=== PATIENT | female | born 1990 | race Two or more races ===

== ENCOUNTER 2018-07-31 17:47 | Inpatient (IN) | payer MEDICAID, OTHER ==
[~2018-07-31] VITALS: Ht 160 cm; Wt 102.1 kg
[2018-07-31] MEDS ORDERED: IV NS 0.9% 1,000 ML BAG IV ONE (18:00)
--- NOTE | 2018-07-31 18:03 | NUR ---
BIBRA39 FROM HOME FOR ETOH POSSIBLE DRUG USE AND WITNESSED SEIZURE. VERSED 5MCG IM GIVEN BENCH ASSEMBLER OPERATOR, BG 85 BENCH ASSEMBLER OPERATOR. PT IS UNRESPONSIVE ON ASSESSMENT. SKIN IS INTACT AND VSS. NO SIGNS OF TRAUMA. READY FOR EVAL.
[2018-07-31 18:11] LABS: BASOPHILS # (AUTO) 0.1 /CMM (0.0-0.2); BASOPHILS % (AUTO) 1.4 % (0.0-2.0); EOSINOPHILS % (AUTO) 2.8 % (0.0-6.0); HEMATOCRIT 37 % (33-45); HEMOGLOBIN 12.2 g/dL (11.5-14.8); LYMPHOCYTES # (AUTO) 2.3 /CMM (0.8-4.8); LYMPHOCYTES % (AUTO) 30.3 % (20.0-44.0); MEAN CORPUSCULAR HGB CONC 33 g/dl (31.0-36.0); MEAN CORPUSCULAR VOLUME 80 fL (82-100); MONOCYTES # (AUTO) 0.4 /CMM (0.1-1.30); MONOCYTES % (AUTO) 5.4 % (2.0-12.0); NEUTROPHILS # (AUTO) 4.6 /CMM (1.8-8.9); NEUTROPHILS % (AUTO) 60.1 % (43.0-81.0); PLATELET COUNT (AUTO) 185 /CMM (150-450); RED BLOOD CELL COUNT(AUTO) 4.64 MIL/uL (4.0-5.2); WHITE BLOOD COUNT (AUTO) 7.7 K/uL (4.3-11.0)
--- NOTE | 2018-07-31 18:20 | NUR ---
ASSISTED PT TO RESTROOM
[2018-07-31 18:21] LABS: SERUM AMMONIA 9 umol/L (11-32)
[2018-07-31 18:32] LABS: GLUCOSE 90 mg/dL (74-106)
[2018-07-31 18:36] LABS: ALANINE AMINOTRANSFERASE 73 U/L (12-78); ALBUMIN 3.7 g/dL (3.4-5.0); ALKALINE PHOSPHATASE 109 U/L (46-116); ASPARTATE AMINOTRANSFERASE 76 U/L (15-37); BILIRUBIN,DIRECT 0.2 mg/dL (0.0-0.2); BILIRUBIN,TOTAL 0.4 mg/dL (0.2-1.0); CALCIUM, SERUM 8.3 mg/dL (8.5-10.1); CARBON DIOXIDE 23 mmol/L (21-32); CHLORIDE 108 mmol/L (98-107); CREATININE 0.8 mg/dL (0.6-1.3); POTASSIUM 3.1 mmol/L (3.5-5.1); SODIUM SERUM 145 mmol/L (136-145); TOTAL PROTEIN, SERUM 8.5 g/dL (6.4-8.2); UREA NITROGEN, BLOOD 8 mg/dL (7-18)
[2018-07-31 18:37] LABS: ACETAMINOPHEN < 3 ug/ml (10-30)
[2018-07-31 18:38] LABS: APPEARANCE,URINE Clear (CLEAR); BILIRUBIN,URINE Negative (NEGATIVE); BLOOD, URINE Moderate Ery/uL (NEGATIVE); COLOR,URINE Yellow (YELLOW); KETONES,URINE Negative (NEGATIVE); LEUKOCYTE ESTERASE ,URINE Negative (NEGATIVE); NITRITE, URINE Negative (NEGATIVE); PH,URINE 5.5 (5.0-8.0); PROTEIN,URINE 30 mg/dl (NEGATIVE); UGLUCOSE Negative (NEGATIVE); UROBILINOGEN,URINE 0.2 EU/dL (0.2)
[2018-07-31 18:51] LABS: ALCOHOL, BLOOD 322 mg/dL (0-0)
[2018-07-31 18:55] LABS: THYROID STIMULATING HORMONE 1.716 uIU/mL (0.358-3.74)
[2018-07-31 18:58] LABS: BACTERIA,URINE Few /HPF (None Seen); SQUAMOUS EPITHELIAL CELL,UR Few /HPF (None Seen); URINE AMORPHOUS URATE Few /HPF (None Seen); WBC,URINE 0-2 /HPF (0-3)
[2018-07-31] MEDS ORDERED: NALOXONE PREFILLED SYRINGE 2 MG/2 ML SYRINGE ONE (19:06)
--- NOTE | 2018-07-31 19:10 | NUR ---
PT UNRESPONSIVE TO PAINFUL STIMULI. VSS. AWARE
[2018-07-31] MEDS: NALOXONE HCL 0.4 MG/ML AMPUL IV ONE ×2 (19:15→19:22)
[2018-07-31] MEDS ORDERED: LORAZEPAM INJ 2 MG/ML VIAL ONE (19:17)
--- NOTE | 2018-07-31 19:18 | NUR ---
ATIVAN 2MG IVP GIVEN VERBAL ORDERED BY DR. MAGALLANES.
--- NOTE | 2018-07-31 19:18 | NUR ---
PT EXPERIENCED SEIZURE ABOUT 30 SECONDS. PLACED ON 15L NON-REBREATHER. VSS POST SZ.
--- NOTE | 2018-07-31 19:24 | NUR ---
PT TAKEN TO CT VIA BLADIMIR
[2018-07-31] MEDS ORDERED: LEVETIRACETAM (500MG) 1,000 MG in IV NS 0.9% 100 ML IV SCH (19:30)
[2018-07-31] MEDS ORDERED: LORAZEPAM INJ 2 MG/ML VIAL IV ONE (19:30)
--- NOTE | 2018-07-31 20:31 | NUR ---
ICU 259
--- NOTE | 2018-07-31 21:03 | NUR ---
REPORT GIVEN TO ROSSI SHIELDS FOR ICU 259
[2018-07-31 21:39] VITALS: BP 126/57
--- NOTE | 2018-07-31 21:39 | NUR ---
[facility]
--- NOTE | 2018-07-31 21:40 | NUR ---
Received patient from ED via [facility].Transferred to bed independently.Made comfortable. Dx:AMS/SEIZURE/ETOH.Respiration even and unlabored.With O2 3L NC SPO2 97%.SR.VS stable. Denies pain.Seizure,Aspiration and fall precaution implemented.Bed rails up x 3 and padded.Bed locked and in low position.Bed alarm on with call light within easy reach.Continue monitoring.
[2018-07-31 22:01] VITALS: BP 65/28
[2018-07-31 22:08] VITALS: BP 91/65
[2018-07-31 22:30] VITALS: BP 103/61
[2018-07-31] MEDS ORDERED: ACETAMINOPHEN 650 MG/SUPP.RECT RC PRN (22:30)
[2018-07-31] MEDS ORDERED: LORAZEPAM INJ 2 MG/ML VIAL IV PRN (22:30)
[2018-07-31] MEDS ORDERED: MORPHINE SULFATE INJ 2 MG/ML DISP.SYRIN IV PRN (22:30)
[2018-07-31] MEDS ORDERED: ONDANSETRON HCL/PF 4 MG/2 ML VIAL IVP PRN (22:30)
[2018-07-31 23:00] VITALS: BP 103/64
[2018-07-31] MEDS: Potassium Chloride 20 MEQ in IV D5/ 0.9% NACL 1,000 ML IV PRN (23:44)
[2018-08-01] VITALS (21 sets, daily range): BP systolic 84–151; BP diastolic 59–102
--- NOTE | 2018-08-01 00:05 | NUR ---
Bed alarm on and found patient already standing out of bed.Not use call light.Reinforced teaching to use call light before getting out of bed.Care explained and verbalized understanding.
--- NOTE | 2018-08-01 00:55 | NUR ---
Patient AOX4 looking for her money $400.00 she said it is inside her bra.Her bra was inside the belonging bag when she came to ICU no money found.Also not documented in belonging list.Lisa ICU pediatric social worker and [place] ED RN notified.
[2018-08-01 04:53] LABS: BASOPHILS % (AUTO) 0.9 % (0.0-2.0); EOSINOPHILS % (AUTO) 4.8 % (0.0-6.0); HEMATOCRIT 34 % (33-45); HEMOGLOBIN 11.2 g/dL (11.5-14.8); LYMPHOCYTES # (AUTO) 1.8 /CMM (0.8-4.8); LYMPHOCYTES % (AUTO) 40.8 % (20.0-44.0); MEAN CORPUSCULAR HGB CONC 33 g/dl (31.0-36.0); MEAN CORPUSCULAR VOLUME 81 fL (82-100); MONOCYTES # (AUTO) 0.4 /CMM (0.1-1.30); MONOCYTES % (AUTO) 8.1 % (2.0-12.0); NEUTROPHILS % (AUTO) 45.4 % (43.0-81.0); PLATELET COUNT (AUTO) 160 /CMM (150-450); RED BLOOD CELL COUNT(AUTO) 4.18 MIL/uL (4.0-5.2); WHITE BLOOD COUNT (AUTO) 4.3 K/uL (4.3-11.0)
[2018-08-01 05:10] LABS: ALBUMIN 3.1 g/dL (3.4-5.0); BILIRUBIN,TOTAL 0.4 mg/dL (0.2-1.0); CALCIUM, SERUM 7.4 mg/dL (8.5-10.1); CREATININE 0.7 mg/dL (0.6-1.3); MAGNESIUM 1.8 mg/dL (1.8-2.4); PHOSPHORUS 3.1 mg/dL (2.5-4.9); POTASSIUM 3.7 mmol/L (3.5-5.1); TOTAL PROTEIN, SERUM 7.4 g/dL (6.4-8.2)
--- NOTE | 2018-08-01 06:30 | NUR ---
Patient slept on and off.VS remains stable.SR.IVF infusing well.AM care done. Denies pain or any discomfort.No seizure activity noted all night while in ICU.Safety precaution maintained. Call light at bedside within easy reach.
--- NOTE | 2018-08-01 07:00 | NUR ---
BASKET BRAIDER OPENING NOTES RECEIVED PT LYING ON BED.ALERT/ORIENTED X4.ON ROOM AIR,TOLERATING WELL.ON TELE HR IS 90 WITH SR.IV LINE IS ON LEFT AC G20,SITE IS CLEAN,DRY AND INTACT.FC IS IN PLACE WITH CLEAR YELLOW COLOR URINE.CAN AMBULATE TI RESTROOM WITH ONE PERSON ASSISTANCE.SKIN IS INTACT.SAFETY IS MAINTAINED AT ALL TIMES.BED IS IN LOW POSITION AND LOCKED.BED ALARM IA ON.CALL LIGHT IS WITHIN REACH.WILL CONTINUE TO MONITOR THE PT CLOSELY.
[2018-08-01] MEDS ORDERED: LEVE500T20 PO (07:25)
[2018-08-01] MEDS: PANTOPRAZOLE 40 MG VIAL IV SCH (09:06)
[2018-08-01] MEDS ORDERED: DEXTROSE 50%-WATER 50 ML DISP.SYRIN IV PRN (11:30)
[2018-08-01] MEDS ORDERED: INSULIN REGULAR, HUMAN 100 UNIT/ML 3 ML VIAL SQ PRN (11:30)
[2018-08-01] MEDS: Potassium Chloride 20 MEQ in IV D5/ 0.9% NACL 1,000 ML IV PRN ×2 (11:41→23:59)
[2018-08-01] MEDS: BLOOD SUGAR DIAGNOSTIC 1 EACH STRIP IN SCH ×3 (11:45→22:06)
[2018-08-01] MEDS: LEVETIRACETAM (500MG) 500 MG in IV NS 0.9% 100 ML IV SCH ×2 (11:52→20:27)
--- NOTE | 2018-08-01 15:01 | NUR ---
Social service consult requested by Dr. Aguilar for alcohol abuse. Pt. is a 27 year old female who was admitted to [facility] ICU for altered mental status and new onset of seizures. SW met with pt. bedside. Pt. is alert and oriented x 4. Pt. sitting upright on her bed watching something on her cellphone. Pt. was cooperative with SW during the assessment. Pt. has pink colored hair and tattoos on top of her left hand. Pt. resides with her mother and her 4 year old son Scott Rolle. Pt. states she has been drinking alcohol for a long time and drinks up to a litre a day of vodka. SW inquired with pt. if she is depressed. Pt. stated, " I don't think so but I am stressed." SW asked pt. what is causing her stress and pt. stated her divorce. Pt. states she works at [employer] a [employer]. Pt. has no history of attending an alcohol treatment program. SW inquired with pt. if she is interested in attending one. Pt. stated, " I am thinking about it." AMAN encouraged pt. to attend an alcohol treatment program and gave her the following resources: [facility] Substance Abuse Self-helpline ([facility]) Substance Abuse Contact number . Call the hotline and the hotbed lever operator will screen and link individual to an appropriate program. Must have Medi-corey or be Med-corey eligible. [facility] [address] [facility] [place] [address] [place] [address] Appointment needed Intake at 8.00 am but this does not mean acceptance [facility] (Jewish based) [address] [place] [address] (Six months program and need to work for 8 hrs per day while in treatment) [facility] (No insurance required) [address] [place] [phone] [address] [address] Closed on Sunday Open Sunday through Sunday 9 am -6 pm Sunday 10am 5 pm Closed on Sunday [facility] [phone] [place], [place] [phone] Prefer phone calls. They do allow walk-ins but prefer appointments. No other social service needs are requested at this time. SW is available, if needed.
--- NOTE | 2018-08-01 15:30 | NUR ---
STRATEGY INTERN NOTES DR.HANEEN ARMAS ORDERED TO D/C ROSE CATHETER PER PATIENT REQUEST.DISCONTINUED IT.NO COMPLICATIONS NOTED.
--- NOTE | 2018-08-01 16:00 | NUR ---
STILL OPERATOR WHISKEY NOTES PT AMBULATED TO THE RESTROOM BY MINIMAL SUPERVISION.NO DIZZY AND FAINTING NOTED.NO COMPLICATIONS NOTED.
[2018-08-01] MEDS: LORAZEPAM INJ 2 MG/ML VIAL IV PRN (16:44)
[2018-08-01] MEDS: HYDROCODONE/APAP 5/325MG 1 EACH TABLET PO PRN (16:44)
--- NOTE | 2018-08-01 18:00 | NUR ---
CRIME SCENE EXAMINER NOTES TRANSFERRED PT TO ODIN,111-2 TELE.ON TELE HR IS SR.ON ROOM AIR,TOLERATING WELL.NO SOB AND ACUTE DISTRESS NOTED.
--- NOTE | 2018-08-01 19:00 | NUR ---
DIRECTOR OF HEALTH EDUCATION CLOSING NOTES PT IS AMBULATED TO THE RESTROOM BY HERSELF,NOTED WITH ST HR-105.NO SOB AND ACUTE DISTRESS NOTED.IV,LINE IS IN PLACE.RESPIRATION IS WNL.NO SIGNIFICANT CHANGES NOTED IN THE SHIFT.ENDORSED TO FINANCIAL AIDS OFFICER ROSSI RODRIGUEZ FOR BRUNO.
--- NOTE | 2018-08-01 19:00 | NUR ---
RN MS TELE OPENING NOTES RECEIVED PATIENT IN BED AWAKE ALERT AND ORIENTED X4, RESPIRATIONS EVEN AND UNLABORED WITH EQUAL RISE AND FALL OF CHEST, DENIES ANY PAIN OR DISCOMFORT AT THIS TIME, DENIES ANY SOB AT THIS TIME, ON CARDIAC MONITORING SR 90 , SEIZURE PRECAUTIONS RENDERED, PATIENT IS ABLE TO VOID WITHOUT DIFFICULTIES S/P REMOVAL OF ROSE, PER PATIENT "PEE'S ALOT", IV SITE TO LEFT AC #20G INTACT AND PATENT, NO REDNESS,NO INFILTRATION PRESENT, IVF RUNNING ORDERED, ORIENTED TO STAFF AND CALL LIGHT AND KEPT WITHIN REACH, SAFETY PRECAUTIONS IN PLACE, LOW BED AND LOCKED, ALL NEEDS ATTENDED AT THIS TIME, REMAINS COMFORTABLE WILL CONTINUE TO ATTEND NEEDS.
--- NOTE | 2018-08-01 19:00 | NUR ---
MOLD SHEET CLEANER NOTES PT IS URINATED S/P ROSE CATH REMOVAL.NO BLOOD AND DISCOMFORT NOTED.ENDORSED TO RADIUS CORNER MACHINE OPERATOR RN MICHAEL.
[2018-08-01] MEDS ORDERED: LEVETIRACETAM (500MG) 500 MG in IV NS 0.9% 100 ML IV SCH (21:00)
--- NOTE | 2018-08-01 22:21 | NUR ---
TRANSCRIBING OPERATORS SUPERVISOR NOTES ACCUCHECK 102 NO INSULIN NEEDED.
[2018-08-02] VITALS (7 sets, daily range): BP systolic 111–129; BP diastolic 67–80
--- NOTE | 2018-08-02 06:33 | NUR ---
RN MS TELE CLOSING NOTES PATIENT IN BED AWAKE ALERT AND ORIENTED X4, RESPIRATIONS EVEN AND UNLABORED WITH EQUAL RISE AND FALL OF CHEST, DENIES ANY PAIN OR DISCOMFORT AT THIS TIME, DENIES ANY SOB AT THIS TIME, ON CARDIAC MONITORING SR 66 , SEIZURE PRECAUTIONS RENDERED,NO SEIZURE ACTIVITY PATIENT IS ABLE TO VOID WITHOUT DIFFICULTIES S/P REMOVAL OF ROSE, IV SITE TO LEFT AC #20G INTACT AND PATENT, NO REDNESS,NO INFILTRATION PRESENT, IVF RUNNING ORDERED, CALL LIGHT KEPT WITHIN REACH, SAFETY PRECAUTIONS IN PLACE, LOW BED AND LOCKED, ALL NEEDS ATTENDED AT THIS TIME, REMAINS COMFORTABLE WILL CONTINUE TO ATTEND NEEDS AND ENDORSE TO NEXT SHIFT.
--- NOTE | 2018-08-02 07:30 | NUR ---
RN AM SHIFT NOTE PATIENT ALERT ORITNED, AND FREE OF SEIZURE. SAFETY MEASURES IN PLACE. ALERT PATIENT TO SURROUNDINGS. STESS IMPORTANCE TO ASSIST TO BATHEROOM, IMPORTANCE OF CALL LIGHT BEING WITHIN REACH. IV PATENT AND INTACT, FLUIDS RUNNING, IV SEIZURE MEDICAOTIN TO BE GIVEN, MONTOR FOR SEIZURE. SPOKE WITH CASE MANAGEMENT REGARDING RESOURCES FOR PATIETN AND SUBSTANCE ABUSE. CONTINUE TO MONITOR.
[2018-08-02] MEDS: HYDROCODONE/APAP 5/325MG 1 EACH TABLET PO PRN ×2 (07:53→20:56)
[2018-08-02] MEDS: BLOOD SUGAR DIAGNOSTIC 1 EACH STRIP IN SCH ×4 (07:58→21:39)
[2018-08-02] MEDS: PANTOPRAZOLE 40 MG VIAL IV SCH (07:58)
[2018-08-02] MEDS: LEVETIRACETAM (500MG) 500 MG in IV NS 0.9% 100 ML IV SCH ×2 (08:56→20:44)
[2018-08-02] MEDS: Potassium Chloride 20 MEQ in IV D5/ 0.9% NACL 1,000 ML IV PRN ×2 (08:58→13:10)
[2018-08-02 15:25] LABS: CALCIUM, SERUM 8.7 mg/dL (8.5-10.1); CREATININE 0.7 mg/dL (0.6-1.3); MAGNESIUM 1.9 mg/dL (1.8-2.4)
[2018-08-02] MEDS: LORAZEPAM INJ 2 MG/ML VIAL IV PRN (15:59)
[2018-08-02] MEDS: CHLORDIAZEPOXIDE HCL 25 MG CAPSULE PO SCH (17:24)
--- NOTE | 2018-08-02 19:28 | NUR ---
RN CLOSING NOTE PATIENT ALERT ORIENTED X4. UNDERSTANDS CONDITION. IV PATENT AND INTACT, SEIXURE MEDICATIONS GIVEN AND TOLERATED WELL. REINFORCED THE IMPORTANCE OF EATING 75% OF MEALS. REINFORCED IMPORTANCE OF ALCOHOL CESSATION. PATIETN COMPLAINTS OF DISCOMFORT AND PAIN IN THE AM, GAVE ANALGESICS AND TOLERATED WELL. PATIENT COMPLAINED OF FEELING AGITATED IN THE EVENING, GAVE LORAZEPAM AND TOLERATED WELL. MD ORDERED NEW MEDICATION LIBRIUM FOR ALCOHOL ABUSE AND WITHDRAWL, EXPLAINED THIS MEDICATION TO THE PATIENT. CONTINUE HOSPITALIZATION AT THIS TIME PER MD.
--- NOTE | 2018-08-02 19:39 | NUR ---
CIVIL ENGINEERING DIRECTOR NOTE: RECEIVED PT ON BED ALERT AND ORIENTED X4. ABLE TO MAKE NEEDS KNOWN. NO APPARENT DISTRESS NOTED. NO COMPLAINTS OF PAIN OR DISCOMFORT AT THIS TIME. NO SOB NOTED. SINUS RHYTHM ON TELE MONITOR HR 94BPM. IV ON LEFT ANTECUBITAL #20 INTACT AND PATENT, IVF INFUSING WELL. KEPT CLEAN, DRY AND COMFORTABLE. CALL LIGHT PLACED WITHIN REACH. SAFETY AND FALL PRECAUTIONS OBSERVED AND MAINTAINED. WILL CONTINUE TO MONITOR PT.
[2018-08-03] VITALS: BP 109/61
[2018-08-03 04:00] VITALS: BP 115/73
--- NOTE | 2018-08-03 06:44 | NUR ---
MANAGER ACUTE NOTE: NO CHANGES NOTED THROUGHOUT THE SHIFT. NO APPARENT DISTRESS NOTED. DENIES PAIN AND DISCOMFORT AT THIS TIME. ON ROOM AIR, BREATHING EVEN AND UNLABORED WITH NORMAL RESPIRATIONS. ON TELE MONITOR SINUS RHYTHM HR 68BPM. KEPT CLEAN, DRY AND COMFORTABLE. CALL LIGHT PLACED WITHIN REACH. SAFETY AND FALL PRECAUTIONS OBSERVED AND MAINTAINED. WILL ENDORSE TO DAY SHIFT RN FOR CONTINUITY OF CARE.
[2018-08-03 07:20] LABS: BASOPHILS % (AUTO) 0.7 % (0.0-2.0); EOSINOPHILS % (AUTO) 4.4 % (0.0-6.0); HEMATOCRIT 35 % (33-45); HEMOGLOBIN 11.6 g/dL (11.5-14.8); LYMPHOCYTES # (AUTO) 1.3 /CMM (0.8-4.8); MEAN CORPUSCULAR HGB CONC 33 g/dl (31.0-36.0); MEAN CORPUSCULAR VOLUME 80 fL (82-100); MONOCYTES # (AUTO) 0.4 /CMM (0.1-1.30); MONOCYTES % (AUTO) 7.8 % (2.0-12.0); NEUTROPHILS # (AUTO) 2.8 /CMM (1.8-8.9); NEUTROPHILS % (AUTO) 60.1 % (43.0-81.0); PLATELET COUNT (AUTO) 150 /CMM (150-450); RED BLOOD CELL COUNT(AUTO) 4.38 MIL/uL (4.0-5.2); WHITE BLOOD COUNT (AUTO) 4.7 K/uL (4.3-11.0)
[2018-08-03 07:32] LABS: CALCIUM, SERUM 8.8 mg/dL (8.5-10.1); CREATININE 0.7 mg/dL (0.6-1.3); MAGNESIUM 1.9 mg/dL (1.8-2.4); PHOSPHORUS 4.8 mg/dL (2.5-4.9); POTASSIUM 4.2 mmol/L (3.5-5.1)
[2018-08-03 08:00] VITALS: BP_SYST 115; BP_SYST 151; BP_DIAS 50; BP_DIAS 76
[2018-08-03] MEDS: PANTOPRAZOLE 40 MG VIAL IV SCH (08:08)
[2018-08-03] MEDS: BLOOD SUGAR DIAGNOSTIC 1 EACH STRIP IN SCH ×2 (08:08→11:23)
[2018-08-03] MEDS: CHLORDIAZEPOXIDE HCL 25 MG CAPSULE PO SCH (08:08)
[2018-08-03] MEDS ORDERED: LEVETIRACETAM (250 MG) 250 MG TABLET PO SCH (09:00)
[2018-08-03] MEDS: LORAZEPAM INJ 2 MG/ML VIAL IV PRN (11:24)
[2018-08-03] MEDS: HYDROCODONE/APAP 5/325MG 1 EACH TABLET PO PRN (11:32)
--- NOTE | 2018-08-03 13:30 | NUR ---
RN CLOSING NOTE PATIENT DISCHARGED HOME. PICTURES TAKEN AND PLACED IN CHART. PAPERWORK COMPLETED AND SIGNED. ID AND IV SITE REMOVED. PRESCRIPTION CALLED IN TO PHARMACY.
== END 2018-08-03 13:35 | disposition home or self-care (01) | DRG 775 ==
LOC: ER 17:50 → ICU 21:11 → TELE1 08-01 18:03 → MEDSG1 08-03 08:30
PROVIDERS: ADMIT Internal Medicine; ATTEND Internal Medicine
DX: F10.239 Alcohol dependence with withdrawal, unspecified (principal); F10.229 Alcohol dependence with intoxication, unspecified; E66.01 Morbid (severe) obesity due to excess calories; E11.9 Type 2 diabetes mellitus without complications; J45.909 Unspecified asthma, uncomplicated; Y90.8 Blood alcohol level of 240 mg/100 ml or more; F32.9 Major depressive disorder, single episode, unspecified; Z68.39 Body mass index [BMI] 39.0-39.9, adult; G40.89 Other seizures; Z79.4 Long term (current) use of insulin
CPT/HCPCS: 36415; 70450-TC; 71045-TC; 80048-TC; 80053-TC; 80061-TC; 80076-TC; 80305; 81000-TC; 82140-TC; 82962-TC; 83735-TC; 84100-TC; 84443-TC; 84484-TC; 84703-TC; 85025-TC; 87081-TC; 87086-TC; C9113; G0378; G0480; J1815; J1953; J2060; J2310; J3480; J7030; J7042

== ENCOUNTER 2018-08-04 13:16 | Emergency (ER) | payer MEDICAID ==
[~2018-08-04] VITALS: Ht 167.6 cm; Wt 105.3 kg
[~2018-08-04 13:16] MED LIST: LEVE500T20 PO
--- NOTE | 2018-08-04 13:24 | NUR ---
SARAI FOR ALOC; PT RESPONSIVE TO PAINFUL STIMULI, PT ON MONITOR, VSS, NAD NOTED. PENDING MD MARTELL
[2018-08-04 13:47] LABS: BASOPHILS # (AUTO) 0.1 /CMM (0.0-0.2); EOSINOPHILS % (AUTO) 2.3 % (0.0-6.0); HEMATOCRIT 39 % (33-45); HEMOGLOBIN 12.8 g/dL (11.5-14.8); LYMPHOCYTES # (AUTO) 2.7 /CMM (0.8-4.8); LYMPHOCYTES % (AUTO) 36.6 % (20.0-44.0); MEAN CORPUSCULAR HGB CONC 33 g/dl (31.0-36.0); MEAN CORPUSCULAR VOLUME 79 fL (82-100); MONOCYTES # (AUTO) 0.6 /CMM (0.1-1.30); MONOCYTES % (AUTO) 8.4 % (2.0-12.0); NEUTROPHILS # (AUTO) 3.8 /CMM (1.8-8.9); NEUTROPHILS % (AUTO) 51.7 % (43.0-81.0); PLATELET COUNT (AUTO) 225 /CMM (150-450); RED BLOOD CELL COUNT(AUTO) 4.89 MIL/uL (4.0-5.2); WHITE BLOOD COUNT (AUTO) 7.3 K/uL (4.3-11.0)
[2018-08-04 13:49] LABS: APPEARANCE,URINE Clear (CLEAR); BILIRUBIN,URINE Negative (NEGATIVE); BLOOD, URINE Negative Ery/uL (NEGATIVE); COLOR,URINE Yellow (YELLOW); KETONES,URINE Negative (NEGATIVE); LEUKOCYTE ESTERASE ,URINE Negative (NEGATIVE); NITRITE, URINE Negative (NEGATIVE); PH,URINE 5.5 (5.0-8.0); PROTEIN,URINE Negative (NEGATIVE); UGLUCOSE Negative (NEGATIVE); UROBILINOGEN,URINE 0.2 EU/dL (0.2)
[2018-08-04 13:52] LABS: CALCIUM, SERUM 8.3 mg/dL (8.5-10.1); CREATININE 0.8 mg/dL (0.6-1.3); POTASSIUM 3.7 mmol/L (3.5-5.1)
[2018-08-04 13:59] LABS: BILIRUBIN,DIRECT 0.2 mg/dL (0.0-0.2); BILIRUBIN,TOTAL 0.5 mg/dL (0.2-1.0); TOTAL PROTEIN, SERUM 8.9 g/dL (6.4-8.2)
[2018-08-04 14:06] LABS: SALICYLATE 1.4 mg/dL (2.8-20.0)
[2018-08-04 14:27] VITALS: BP 109/59
--- NOTE | 2018-08-04 15:14 | NUR ---
PT ELOPED FROM ER; PT HAS NO PIV, SECURITY CALLED AWARE, WILL CALL POLICE DEPT.
--- NOTE | 2018-08-04 15:28 | NUR ---
ELOPEMENT DISCOVERED AT 1520. CALLED [employer] AND SPOKE TO SUPERVISOR CAR AND YARD 909 ABOUT THE ELOPEMENT.
== END 2018-08-04 15:14 | disposition left against medical advice (07) ==
LOC: ER 13:17
DX: F10.129 Alcohol abuse with intoxication, unspecified (principal); R56.9 Unspecified convulsions; F17.200 Nicotine dependence, unspecified, uncomplicated; R00.0 Tachycardia, unspecified; Y90.8 Blood alcohol level of 240 mg/100 ml or more
CPT/HCPCS: 36415; 80048; 80076; 80305; 80307; 80329; 81001; 85025; 93005; 99284; G0480; 81000-TC

== ENCOUNTER 2018-11-21 21:09 | Emergency (ER) | payer MEDICAID ==
[~2018-11-21] VITALS: Ht 167.6 cm; Wt 79.4 kg
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
--- NOTE | 2018-11-21 21:40 | NUR ---
PL SQL PROGRAMMER AT BEDSIDE FOR BLOOD DRAW. PT CRYING BUT DOES NOT WANT TO SAY WHY. ASKS TO BE LEFT ALONE
[2018-11-21 21:44] LABS: BASOPHILS % (AUTO) 0.5 % (0.0-2.0); EOSINOPHILS % (AUTO) 0.7 % (0.0-6.0); HEMATOCRIT 40 % (33-45); HEMOGLOBIN 13.5 g/dL (11.5-14.8); LYMPHOCYTES # (AUTO) 2.9 /CMM (0.8-4.8); LYMPHOCYTES % (AUTO) 32.1 % (20.0-44.0); MEAN CORPUSCULAR HGB CONC 34 g/dl (31.0-36.0); MEAN CORPUSCULAR VOLUME 78 fL (82-100); MONOCYTES # (AUTO) 0.3 /CMM (0.1-1.30); MONOCYTES % (AUTO) 2.9 % (2.0-12.0); NEUTROPHILS # (AUTO) 5.7 /CMM (1.8-8.9); NEUTROPHILS % (AUTO) 63.8 % (43.0-81.0); PLATELET COUNT (AUTO) 256 /CMM (150-450); RED BLOOD CELL COUNT(AUTO) 5.18 MIL/uL (4.0-5.2)
[2018-11-21 21:59] LABS: CALCIUM, SERUM 8.3 mg/dL (8.5-10.1); CREATININE 0.9 mg/dL (0.6-1.3); POTASSIUM 3.5 mmol/L (3.5-5.1)
[2018-11-21 22:07] LABS: ALBUMIN 3.7 g/dL (3.4-5.0); BILIRUBIN,DIRECT 0.2 mg/dL (0.0-0.2); BILIRUBIN,TOTAL 0.4 mg/dL (0.2-1.0); TOTAL PROTEIN, SERUM 8.6 g/dL (6.4-8.2)
[2018-11-21 22:08] LABS: SALICYLATE 1.5 mg/dL (2.8-20.0)
--- NOTE | 2018-11-21 22:21 | NUR ---
URINE COLLECTED AND SENT TO STAT LAB
--- NOTE | 2018-11-21 22:30 | NUR ---
PT IS RESTLESS, CONTINUES TO GET OUT OF BED AND WALK AROUND. SITTER AT BEDSIDE, ENCOURAGED TO GO BACK TO BED.
[2018-11-21 22:45] LABS: APPEARANCE,URINE Clear (CLEAR); BILIRUBIN,URINE Negative (NEGATIVE); BLOOD, URINE Negative Ery/uL (NEGATIVE); COLOR,URINE Yellow (YELLOW); KETONES,URINE Negative (NEGATIVE); LEUKOCYTE ESTERASE ,URINE Negative (NEGATIVE); NITRITE, URINE Negative (NEGATIVE); PROTEIN,URINE Negative (NEGATIVE); UGLUCOSE Negative (NEGATIVE); UROBILINOGEN,URINE 0.2 EU/dL (0.2)
--- NOTE | 2018-11-21 23:15 | NUR ---
PT FINALLLY RESTING COMFORTABLY IN BED. PROVIDED WARM BLANKET FOR COMFORT. WILL CONT TO MONITOR.
--- NOTE | 2018-11-21 23:20 | NUR ---
PT WOKE UP SUDDENLY, DISORIENTED AND FREAKED OUT ABOUT WHERE SHE IS. REASSURED HER SHE IS BEING TAKEN CARE OF, VSS.
--- NOTE | 2018-11-22 00:21 | NUR ---
pt asleep, easily arousable, no acute distress noted, resp even and unlabored. call light within reach. will continue to monitor pt closely.
--- NOTE | 2018-11-22 01:56 | NUR ---
Note rosemarie in EDM - 11/22/18 at 0519 by MARLEEN pt aaox4 no acute distress noted, resp even and unlabored. pt ambulatory to the bathroom with steady gait noted.
--- NOTE | 2018-11-22 02:03 | NUR ---
pt asleep, easily arousable, no acute distress noted, resp even and unlabored. call light within reach. will continue to monitor pt closely.
--- NOTE | 2018-11-22 03:39 | NUR ---
pt asleep, easily arousable, no acute distress noted, resp even and unlabored. call light within reach. will continue to monitor pt closely.
--- NOTE | 2018-11-22 04:56 | NUR ---
pt aaox4 no acute distress noted, resp even and unlabored. pt ambulatory to the bathroom with steady gait noted.
[2018-11-22 05:23] VITALS: BP 129/61
== END 2018-11-22 05:24 | disposition home or self-care (01) ==
LOC: ER 21:18
DX: F10.129 Alcohol abuse with intoxication, unspecified (principal); F17.200 Nicotine dependence, unspecified, uncomplicated; Z59.0 Homelessness; Z79.899 Other long term (current) drug therapy; Y90.8 Blood alcohol level of 240 mg/100 ml or more
CPT/HCPCS: 36415; 80048; 80076; 80305; 80307; 80329; 81001; 84703; 85025; 99283; G0480; 81000-TC

== ENCOUNTER 2022-11-22 17:35 | Emergency (ER) | payer MEDICAID ==
[~2022-11-22] VITALS: Ht 162.6 cm; Wt 76.7 kg
--- NOTE | 2022-11-22 17:40 | NUR ---
SARAI FOR ALCOHOL INTOXICATION. PATIENT HAD BEEN DRINKING AND FELL ON A TABLE CAUSNIG BACK PAIN. A/O X 3, TOLERTATING WELL ON ROOM AIR. WILL CONTINUE TO MONITOR.
--- NOTE | 2022-11-22 18:55 | NUR ---
BLOOD SAMPLES OBTAINED
[2022-11-22] MEDS ORDERED: IV NS 0.9% 1,000 ML BAG IV ONE (19:00)
[2022-11-22 19:13] LABS: BASOPHILS % (AUTO) 0.9 % (0.0-2.0); EOSINOPHILS % (AUTO) 0.5 % (0.0-6.0); HEMATOCRIT 29 % (33-45); HEMOGLOBIN 9.3 g/dL (11.5-14.8); LYMPHOCYTES # (AUTO) 1.6 K/uL (0.8-4.8); LYMPHOCYTES % (AUTO) 33.6 % (20.0-44.0); MEAN CORPUSCULAR HGB CONC 32 g/dl (31.0-36.0); MEAN CORPUSCULAR VOLUME 68 fL (82-100); MONOCYTES # (AUTO) 0.2 K/uL (0.1-1.30); MONOCYTES % (AUTO) 4.8 % (2.0-12.0); NEUTROPHILS # (AUTO) 2.8 K/uL (1.8-8.9); NEUTROPHILS % (AUTO) 60.2 % (43.0-81.0); PLATELET COUNT (AUTO) 180 K/uL (150-450); RED BLOOD CELL COUNT(AUTO) 4.31 MIL/uL (4.0-5.2); WHITE BLOOD COUNT (AUTO) 4.6 K/uL (4.3-11.0)
[2022-11-22 19:43] LABS: LYMPHOCYTES % (MANUAL) 38 % (16-48); MONOCYTES % (MANUAL) 11 % (0-11.0); NEUTROPHILS % (MANUAL) 51 (42-76)
[2022-11-22 19:55] LABS: ALBUMIN 3.7 g/dL (3.4-5.0); BILIRUBIN,DIRECT 0.3 mg/dL (0.0-0.2); BILIRUBIN,TOTAL 0.9 mg/dL (0.2-1.0); CALCIUM, SERUM 8.3 mg/dL (8.5-10.1); CREATININE 0.6 mg/dL (0.6-1.3); POTASSIUM 3.1 mmol/L (3.5-5.1); TOTAL PROTEIN, SERUM 8.1 g/dL (6.4-8.2)
--- NOTE | 2022-11-22 20:10 | NUR ---
WAIVER SIGNED BY PT.
--- NOTE | 2022-11-22 20:39 | NUR ---
PT CAME BACK FROM CT SCAN
[2022-11-22] MEDS ORDERED: IBUPROFEN 600 MG TABLET PO ONE (21:30)
[2022-11-22] MEDS ORDERED: IBUPROFEN 600 MG TABLET ONE (21:34)
--- NOTE | 2022-11-23 03:41 | NUR ---
PT IS AOX4. ABLE TO AMBULATE IN THE ER
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
--- NOTE | 2022-11-23 04:14 | NUR ---
PT IS FOR DISCHARGE. WILL BE PLACED IN WAITING ROOM UNTIL FRONT DESK AGENT ARRIVES.
[2022-11-23 07:00] VITALS: BP 101/71; TEMP 98; O2SAT 96
--- NOTE | 2022-11-23 07:48 | NUR ---
urine collected, sent to lab
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
== END 2022-11-23 04:30 | disposition home or self-care (01) ==
LOC: ER 17:40
DX: S20.211A Contusion of right front wall of thorax, initial encounter (principal); R55 Syncope and collapse; F10.129 Alcohol abuse with intoxication, unspecified; F17.200 Nicotine dependence, unspecified, uncomplicated; W18.30XA Fall on same level, unspecified, initial encounter; Y93.89 Activity, other specified; Y92.89 Other specified places as the place of occurrence of the external cause; Y99.8 Other external cause status; Y90.8 Blood alcohol level of 240 mg/100 ml or more
CPT/HCPCS: 99284; 96360; 72125; 71250; 70450; 85025; 80048; 80076; 85007; 36415; 85730; 82962; 80320; J7030; G0480

== ENCOUNTER 2023-03-14 01:27 | Emergency (ER) | payer MEDICAID, OTHER ==
[~2023-03-14] VITALS: Ht 162.6 cm; Wt 79.4 kg
[2023-03-14 01:35] VITALS: BP 105/73; TEMP 98; O2SAT 97
== END 2023-03-14 01:54 ==
LOC: ER 01:29
DX: Z02.9 Encounter for administrative examinations, unspecified (principal)